=== PATIENT | male | born 1975 | race Hispanic/Latino ===

== ENCOUNTER 2019-05-26 14:47 | Emergency (ER) | payer SELFPAY ==
[2019-05-26] MEDS ORDERED: IBUPROFEN 400 MG TAB ONE (15:14)
[2019-05-26] MEDS ORDERED: IBUPROFEN 200 MG TAB PO ONE (15:14)
[2019-05-26] MEDS ORDERED: TETANUS & DIPHTHERIA TOX,ADULT 0.5 ML VIAL ONE (15:15)
--- NOTE | 2019-05-26 15:27 | EDPHYS ---
Physician Documentation [facility] Name: Claus Rosario Age: 44 yrs Sex: Male : 1975 Arrival Date: 05/26/2019 Time: 14:50 Bed 6 Private MD: ED Physician Randy Sanchez HPI: 05/26 15:24 This 44 yrs old Male presents to ER via Ambulatory with complaints of jr8 Laceration To Head. 15:24 Pt was working under the house and stood up hitting his head on a sharp object, denies jr8 LOC. Historical: - Allergies: 14:53 No Known Allergies; sv - Immunization history:: Last tetanus immunization: unknown. - Social history:: Smoking status: Patient/guardian denies using tobacco. - Ebola Screening: : No symptoms or risks identified at this time. ROS: 15:24 Constitutional: Negative for fever, chills, and weight loss, Eyes: Negative for injury, jr8 pain, redness, and discharge, ENT: Negative for injury, pain, and discharge, Neck: Negative for injury, pain, and swelling, Cardiovascular: Negative for chest pain, palpitations, and edema, Respiratory: Negative for shortness of breath, cough, wheezing, and pleuritic chest pain, Abdomen/GI: Negative for abdominal pain, nausea, vomiting, diarrhea, and constipation, Back: Negative for injury and pain, MS/Extremity: Negative for injury and deformity, Neuro: Negative for headache, weakness, numbness, tingling, and seizure. 15:24 Skin: Positive for laceration(s). Exam: 15:24 Constitutional: This is a well developed, well nourished patient who is awake, alert, jr8 and in no acute distress. Head/Face: Normocephalic, atraumatic. Eyes: Pupils equal round and reactive to light, extra-ocular motions intact. Lids and lashes normal. Conjunctiva and sclera are non-icteric and not injected. Cornea within normal limits. Periorbital areas with no swelling, redness, or edema. ENT: Nares patent. No nasal discharge, no septal abnormalities noted. Tympanic membranes are normal and external auditory canals are clear. Oropharynx with no redness, swelling, or masses, exudates, or evidence of obstruction, uvula midline. Mucous membranes moist. Neck: Trachea midline, no thyromegaly or masses palpated, and no cervical lymphadenopathy. Supple, full range of motion without nuchal rigidity, or vertebral point tenderness. No Meningismus. Chest/axilla: Normal chest wall appearance and motion. Nontender with no deformity. No lesions are appreciated. Cardiovascular: Regular rate and rhythm with a normal S1 and S2. No gallops, murmurs, or rubs. Normal PMI, no JVD. No pulse deficits. Respiratory: Lungs have equal breath sounds bilaterally, clear to auscultation and percussion. No rales, rhonchi or wheezes noted. No increased work of breathing, no retractions or nasal flaring. Abdomen/GI: Soft, non-tender, with normal bowel sounds. No distension or tympany. No guarding or rebound. No evidence of tenderness throughout. MS/ Extremity: Pulses equal, no cyanosis. Neurovascular intact. Full, normal range of motion. 15:24 Skin: injury, laceration(s), the wound is approximately 4 cm(s), with a depth of 1 cm(s), of the right side of the back of head. Vital Signs: 14:53 BP 145 / 84; Pulse 98; Resp 16; Temp 98.2; Pulse Ox 96% ; Height 5 ft. 9 in. (175.26 sv cm); 15:57 BP 136 / 78; Pulse 81; Resp 18; Temp 98.30; Pulse Ox 99% on R/A; ph Laceration: 15:22 Wound Repair of 4cm ( 1.6in ) subcutaneous laceration to scalp. Distal jr8 neuro/vascular/tendon intact. Skin closed with 4 1-0 [place] using staple gun. MDM: 15:06 Patient medically screened. [facility] 15:25 Data reviewed: vital signs, nurses notes. Counseling: I had a detailed discussion with [facility] the patient and/or guardian regarding: the historical points, exam findings, and any diagnostic results supporting the discharge/admit diagnosis. ED course: . 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 Exp: ph 12/31/2020. Lot #: [id number]. } Route: IM; Site: right deltoid; 15:48 Follow up: Response: No adverse reaction ph 15:23 Drug: Ibuprofen 600 mg Route: PO; ph 15:48 Follow up: Response: No adverse reaction ph Disposition: 16:23 Co-signature as Attending Physician, Randy Sanchez MD I agree with the assessment and kdr plan of care. Disposition: 05/26/19 15:26 Discharged to Home. Impression: Laceration without foreign body of scalp. - Condition is Stable. - Discharge Instructions: Laceration Care, Adult, Stitches, [place], or Adhesive Wound Closure. - Work release form, Medication Reconciliation Form, Thank You Letter form. - Follow up: Private Physician; When: 5 - 6 days; Reason: Re-evaluation by your physician. - Problem is new. - Symptoms have improved. - Notes: have dayne taken out in 5-7 days. Signatures: rKystal Razo, RN RN Randy Fish MD MD [facility] Andi Stringer PA PA jr8 aNzia Rodriguez RN RN ph Corrections: (The following items were deleted from the chart) 16:06 15:26 05/26/2019 15:26 Discharged to Home. Impression: Laceration without foreign body ph of scalp. Condition is Stable. Forms are Medication Reconciliation Form, Thank You Letter, Antibiotic Education, Prescription Opioid Use. Follow up: Private Physician; When: 5 - 6 days; Reason: Re-evaluation by your physician. Problem is new. Symptoms have improved. jr8
--- NOTE | 2019-05-26 15:27 | ER ---
Nurse's Notes [facility] Name: Claus Rosario Age: 44 yrs Sex: Male : 1975 Arrival Date: 05/26/2019 Time: 14:50 Bed 6 Private MD: Diagnosis: Laceration without foreign body of scalp Presentation: 05/26 14:51 Presenting complaint: Patient states: head laceration while fixing something under the house, hit his head with a maryana nail or metal pipe. Denies LOC. Transition of care: patient was not received from another setting of care. Complicating Factors: There are no complicating factors for this patient. Onset of symptoms was May 26, 2019. Risk Assessment: Do you want to hurt yourself or someone else? Patient reports no desire to harm self or others. Care prior to arrival: None. 14:51 Method Of Arrival: Ambulatory sv 14:51 Acuity: RUBIN 3 sv 15:58 Initial Sepsis Screen: Does the patient meet any 2 criteria? No. Patient's initial ph sepsis screen is negative. Does the patient have a suspected source of infection? No. Patient's initial sepsis screen is negative. Historical: - Allergies: 14:53 No Known Allergies; sv - Immunization history:: Last tetanus immunization: unknown. - Social history:: Smoking status: Patient/guardian denies using tobacco. - Ebola Screening: : No symptoms or risks identified at this time. Screenin:57 Abuse screen: Denies threats or abuse. Denies injuries from another. Nutritional ph screening: No deficits noted. Tuberculosis screening: No symptoms or risk factors identified. Fall Risk None identified. Assessment: 15:24 General: Appears in no apparent distress. comfortable, well groomed, Behavior is calm, ph cooperative, appropriate for age. Pain: Complains of pain in right side of the back of head. Neuro: Level of Consciousness is awake, alert, obeys commands, Oriented to person, place, time, situation, Reports dizziness, headache in right occipital area. Cardiovascular: Capillary refill < 3 seconds in bilateral fingers Patient's skin is warm and dry. Respiratory: Airway is patent Respiratory effort is even, unlabored. GI: Patient currently denies nausea, vomiting. Derm: Skin is healthy with good turgor, Skin is pink, warm \T\ dry. Musculoskeletal: Circulation, motion, and sensation intact. Range of motion: intact in all extremities. Injury Description: Laceration sustained to right side of the back of head is superficial, 0.5 to 2.5 cm long, not bleeding. 15:55 Reassessment: Patient appears in no apparent distress at this time. Patient and/or ph family updated on plan of care and expected duration. Pain level reassessed. Patient is alert, oriented x 3, equal unlabored respirations, skin warm/dry/pink. Pt instructed to follow up for staple removal in 5-7 days, d/c home. Vital Signs: 14:53 BP 145 / 84; Pulse 98; Resp 16; Temp 98.2; Pulse Ox 96% ; Height 5 ft. 9 in. (175.26 sv cm); 15:57 BP 136 / 78; Pulse 81; Resp 18; Temp 98.30; Pulse Ox 99% on R/A; ph ED Course: 14:50 Patient arrived in ED. mr 14:52 Triage completed. sv 14:53 Arm band placed on. sv 14:54 Nazia Rodriguez RN is Primary Nurse. ph 14:57 Andi Stringer PA is PHCP. jr8 14:57 Randy Sanchez MD is Attending Physician. jr8 15:25 Assist provider with laceration repair on right side of the back of head that was 2.5 ph cm. or less using dayne. Set up tray. Performed by Andi TAPIA Patient tolerated well. Patient did not have IV access during this emergency room visit. Wound care: to laceration located on right side of the back of head was cleaned with Hibiclens, Patient tolerated well. 15:57 Patient has correct armband on for positive identification. Bed in low position. Call ph light in reach. Side rails up X 1. Pulse ox on. NIBP on. Door closed. Noise minimized. Warm blanket given. 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 Exp: ph 12/31/2020. Lot #: [id number]. } Route: IM; Site: right deltoid; 15:48 Follow up: Response: No adverse reaction ph 15:23 Drug: Ibuprofen 600 mg Route: PO; ph 15:48 Follow up: Response: No adverse reaction ph Outcome: 15:26 Discharge ordered by MD. kate 15:58 Discharged to home ambulatory. ph 15:58 Condition: good 15:58 Discharge instructions given to patient, Instructed on discharge instructions, follow up and referral plans. wound care, Demonstrated understanding of instructions, follow-up care, wound care. 16:06 Patient left the ED. ph Signatures: Krystal Razo RN RN Kim Salazar Josh, PA PA jr8 Hall, Patricia, RN RN
[2019-05-26 16:24] VITALS: BP 145/84; TEMP 98.2; O2SAT 96
== END 2019-05-26 16:06 | disposition home or self-care (01) ==
LOC: ER 14:47
PROC: 0JQ00ZZ Repair Scalp Subcutaneous Tissue and Fascia, Open Approach (ICD-10-PCS; principal; 2019-05-26)
DX: S01.01XA Laceration without foreign body of scalp, initial encounter (principal); W22.8XXA Striking against or struck by other objects, initial encounter; Y93.89 Activity, other specified; Y92.89 Other specified places as the place of occurrence of the external cause; Z23 Encounter for immunization
CPT/HCPCS: 90471; 90714; 99284

== ENCOUNTER 2019-06-03 12:54 | Emergency (ER) | payer SELFPAY ==
--- NOTE | 2019-06-03 13:46 | ER ---
Nurse's Notes [facility] Name: Claus Rosario Age: 44 yrs Sex: Male : 1975 Arrival Date: 06/03/2019 Time: 12:55 Bed 12 Private MD: Diagnosis: Encounter for removal of sutures-dayne Presentation: 06/03 13:00 Presenting complaint: Patient states: i need to get these dayne out, today is day 8, tw2 i was out of town yesterday. Transition of care: patient was not received from another setting of care. Onset of symptoms was June 03, 2019. Risk Assessment: Do you want to hurt yourself or someone else? Patient reports no desire to harm self or others. Initial Sepsis Screen: Does the patient meet any 2 criteria? No. Patient's initial sepsis screen is negative. Does the patient have a suspected source of infection? No. Patient's initial sepsis screen is negative. Care prior to arrival: None. 13:00 Method Of Arrival: Ambulatory tw2 13:00 Acuity: RUBIN 5 tw2 Triage Assessment: 13:01 General: Appears in no apparent distress. well groomed, Behavior is calm, cooperative, tw2 appropriate for age. Pain: Denies pain. Injury Description: 4 dayne to RIGHT side of temporal area, no s\T\s infection noted. Historical: - Allergies: 13: No Known Allergies; tw2 - Home Meds: 13: None [Active]; tw2 - PMHx: 13: None; tw2 - PSHx: 13:01 None; tw2 - Immunization history:: Adult Immunizations. - Social history:: Smoking status: . - Ebola Screening: : Patient denies travel to an Ebola-affected area in the 21 days before illness onset. - Family history:: not pertinent. Screenin:05 Abuse screen: Denies threats or abuse. Nutritional screening: No deficits noted. tw2 Tuberculosis screening: No symptoms or risk factors identified. Fall Risk None identified. Assessment: 13:05 Reassessment: see triage assessment. tw2 13:43 Reassessment: Patient appears in no apparent distress at this time. No changes from tw2 previously documented assessment. Patient and/or family updated on plan of care and expected duration. Pain level reassessed. Patient is alert, oriented x 3, equal unlabored respirations, skin warm/dry/pink. Vital Signs: 13:01 BP 129 / 79; Pulse 99; Resp 17; Temp 97.4; Pulse Ox 97% on R/A; Pain 0/10; tw2 ED Course: 12:55 Patient arrived in ED. as 13:00 Bed in low position. Call light in reach. suture removal kit at bedside. tw2 13:01 Triage completed. tw2 13:01 Arm band placed on. tw2 13:05 Elicia Millard, RN is Primary Nurse. tw2 13:05 Ezra Vail MD is Attending Physician. [facility] 13:06 No provider procedures requiring assistance completed. Patient did not have IV access tw2 during this emergency room visit. Administered Medications: No medications were administered Outcome: 13:43 Discharged to home ambulatory. tw2 13:43 Condition: stable 13:43 Discharge instructions given to patient, Instructed on discharge instructions, follow up and referral plans. Demonstrated understanding of instructions, follow-up care. 13:45 Discharge ordered by . [facility] 14:03 Patient left the ED. hb Signatures: Ezra Vail MD MD cha Martinez, Amelia as Elham Segura, RN RN Elicia Millard, SYD RN tw2
--- NOTE | 2019-06-03 13:46 | EDPHYS ---
Physician Documentation [facility] Name: Claus Rosario Age: 44 yrs Sex: Male : 1975 Arrival Date: 06/03/2019 Time: 12:55 Bed 12 Private MD: ED Physician Ezra Vail HPI: 06/03 13:42 This 44 yrs old Male presents to ER via Ambulatory with complaints of Staple blanca Removal. 13:42 The patient has trinity on the face. Previous treatment: The patient was initially blanca treated 10 day(s) ago. Sutures/trinity progress: The patient has no c/o's. The wound is well-healing with no redness, swelling, discharge, or dehiscence reported. The patient has not experienced similar symptoms in the past. Historical: - Allergies: 13: No Known Allergies; tw2 - Home Meds: 13: None [Active]; tw2 - PMHx: 13: None; tw2 - PSHx: 13:01 None; tw2 - Immunization history:: Adult Immunizations. - Social history:: Smoking status: . - Ebola Screening: : Patient denies travel to an Ebola-affected area in the 21 days before illness onset. - Family history:: not pertinent. ROS: 13:42 Constitutional: Negative for fever, chills, and weight loss, Eyes: Negative for injury, blanca pain, redness, and discharge, ENT: Negative for injury, pain, and discharge, Neck: Negative for injury, pain, and swelling, Cardiovascular: Negative for chest pain, palpitations, and edema, Respiratory: Negative for shortness of breath, cough, wheezing, and pleuritic chest pain, Abdomen/GI: Negative for abdominal pain, nausea, vomiting, diarrhea, and constipation, Back: Negative for injury and pain, : Negative for injury, bleeding, discharge, and swelling, MS/Extremity: Negative for injury and deformity, Neuro: Negative for headache, weakness, numbness, tingling, and seizure, Psych: Negative for depression, anxiety, suicide ideation, homicidal ideation, and hallucinations, Allergy/Immunology: Negative for hives, rash, and allergies, Endocrine: Negative for neck swelling, polydipsia, polyuria, polyphagia, and marked weight changes, Hematologic/Lymphatic: Negative for swollen nodes, abnormal bleeding, and unusual bruising. 13:42 Skin: Positive for wound check. Exam: 13:42 Constitutional: This is a well developed, well nourished patient who is awake, alert, blanca and in no acute distress. Eyes: Pupils equal round and reactive to light, extra-ocular motions intact. Lids and lashes normal. Conjunctiva and sclera are non-icteric and not injected. Cornea within normal limits. Periorbital areas with no swelling, redness, or edema. ENT: Nares patent. No nasal discharge, no septal abnormalities noted. Tympanic membranes are normal and external auditory canals are clear. Oropharynx with no redness, swelling, or masses, exudates, or evidence of obstruction, uvula midline. Mucous membranes moist. Neck: Trachea midline, no thyromegaly or masses palpated, and no cervical lymphadenopathy. Supple, full range of motion without nuchal rigidity, or vertebral point tenderness. No Meningismus. Chest/axilla: Normal chest wall appearance and motion. Nontender with no deformity. No lesions are appreciated. Cardiovascular: Regular rate and rhythm with a normal S1 and S2. No gallops, murmurs, or rubs. Normal PMI, no JVD. No pulse deficits. Respiratory: Lungs have equal breath sounds bilaterally, clear to auscultation and percussion. No rales, rhonchi or wheezes noted. No increased work of breathing, no retractions or nasal flaring. Abdomen/GI: Soft, non-tender, with normal bowel sounds. No distension or tympany. No guarding or rebound. No evidence of tenderness throughout. Back: No spinal tenderness. No costovertebral tenderness. Full range of motion. Skin: Warm, dry with normal turgor. Normal color with no rashes, no lesions, and no evidence of cellulitis. MS/ Extremity: Pulses equal, no cyanosis. Neurovascular intact. Full, normal range of motion. Neuro: Awake and alert, GCS 15, oriented to person, place, time, and situation. Cranial nerves II-XII grossly intact. Motor strength 5/5 in all extremities. Sensory grossly intact. Cerebellar exam normal. Normal gait. Psych: Awake, alert, with orientation to person, place and time. Behavior, mood, and affect are within normal limits. 13:42 Head/face: wound check, healing well. Vital Signs: 13:01 BP 129 / 79; Pulse 99; Resp 17; Temp 97.4; Pulse Ox 97% on R/A; Pain 0/10; tw2 MDM: 13:05 Patient medically screened. [facility] 06/03 13:06 Order name: Staple Remover Setup; Complete Time: 13:06 tw2 Administered Medications: No medications were administered Disposition: 06/03/19 13:45 Discharged to Home. Impression: Encounter for removal of sutures - trinity. - Condition is Stable. - Discharge Instructions: Stitches, Trinity, or Adhesive Wound Closure, Suture Removal, Care After. - Medication Reconciliation Form, Thank You Letter, Antibiotic Education, Prescription Opioid Use form. - Follow up: Private Physician; When: 1 week; Reason: Recheck today's complaints, Continuance of care, Re-evaluation by your physician. - Problem is new. - Symptoms have improved. Signatures: Ezra Vail MD MD cha Baxter, Heather RN RN Elicia Millard RN RN tw2 Corrections: (The following items were deleted from the chart) 14:03 13:45 06/03/2019 13:45 Discharged to Home. Impression: Encounter for removal of sutures hb - trinity. Condition is Stable. Forms are Medication Reconciliation Form, Thank You Letter, Antibiotic Education, Prescription Opioid Use. Follow up: Private Physician; When: 1 week; Reason: Recheck today's complaints, Continuance of care, Re-evaluation by your physician. Problem is new. Symptoms have improved. [facility]
[2019-06-03 14:33] VITALS: BP 129/79; TEMP 97.4; O2SAT 97
== END 2019-06-03 14:03 | disposition home or self-care (01) ==
LOC: ER 12:54
DX: Z48.02 Encounter for removal of sutures (principal)
CPT/HCPCS: 99281

== ENCOUNTER 2020-02-24 12:55 | Emergency (ER) | payer SELFPAY, OTHER ==
--- NOTE | 2020-02-24 15:39 | ER ---
Nurse's Notes [facility] Name: Claus Rosario Age: 44 yrs Sex: Male : 1975 Arrival Date: 02/24/2020 Time: 12:56 Bed 28 Private MD: Diagnosis: Heat exhaustion, unspecified;Other malaise and fatigue Presentation: 02/23 13:29 Chief complaint: Patient states: wants to get tested for COVID, has been hot and achy, iw chills at night, no cough, has had to leave work a couple times and now they want him tested. Coronavirus screen: Proceed with normal triage. Patient denies a cough. Patient denies shortness of breath or difficulty breathing. Patient denies measured and/or subjective temperature greater than 100.4F prior to today's visit. Patient denies travel on a cruise ship or to a country the [facility] currently lists as an affected area. Patient denies contact with known and/or suspected case of COVID-19. Ebola Screen: Patient negative for fever greater than or equal to 101.5 degrees Fahrenheit, and additional compatible Ebola Virus Disease symptoms Patient denies exposure to infectious person. Patient denies travel to an Ebola-affected area in the 21 days before illness onset. No symptoms or risks identified at this time. Initial Sepsis Screen: Does the patient meet any 2 criteria? No. Patient's initial sepsis screen is negative. Does the patient have a suspected source of infection? No. Patient's initial sepsis screen is negative. Risk Assessment: Do you want to hurt yourself or someone else? Patient reports no desire to harm self or others. Onset of symptoms was February 18, 2020. 13:29 Method Of Arrival: Ambulatory iw 13:29 Acuity: RUBIN 4 iw Historical: - Allergies: 13:32 No Known Allergies; iw - Home Meds: 13:32 None [Active]; iw - PMHx: 13:32 None; iw - PSHx: 13:32 None; iw - Immunization history:: Adult Immunizations. - Social history:: Smoking status: Patient denies any tobacco usage or history of. Assessment: 14:29 General: Appears in no apparent distress. Behavior is calm, cooperative. Pain: Denies iw pain. Neuro: Level of Consciousness is awake, alert, obeys commands, Oriented to person, place, time, situation. Cardiovascular: Patient's skin is warm and dry. Vital Signs: 13:29 BP 107 / 76; Pulse 96; Resp 16; Temp 98.8; Pulse Ox 97% on R/A; Weight 83.91 kg; iw ED Course: 12:56 Patient arrived in ED. ag5 13:31 Triage completed. iw 13:32 Arm band placed on. iw 14:01 [facility] Hanna [facility]-C [facility]. snw 14:01 Michael Hernandez MD is Attending Physician. snw 14:29 Marsha Rogers, RN is Primary Nurse. iw 14:57 Pt swabbed for COVID-19. jp3 14:58 COVID-19 Sent. jp3 Administered Medications: No medications were administered Outcome: 15:38 Discharge ordered by . snw 16:07 Patient left the ED. iw Signatures: Suzie Hanna FNP-C [facility] Marsha Rogers, RN RN Darrin Ribera jp3 Ino Conway ag5
--- NOTE | 2020-02-24 15:39 | EDPHYS ---
Physician Documentation [facility] Name: Claus Rosario Age: 44 yrs Sex: Male : 1975 Arrival Date: 02/24/2020 Time: 12:56 Bed 28 Private MD: ED Physician Michael Hernandez HPI: 02/23 17:30 This 44 yrs old Male presents to ER via Ambulatory with complaints of R/O snw COVID. 17:30 The patient has experienced near-syncope, felt faint, felt generally weak. Onset: The snw symptoms/episode began/occurred gradually, 3 day(s) ago. Duration: The patient has had multiple episodes, that last an unknown period of time. Context: pt states he felt overheated and generally weak with increased fatigue. Associated injury: The patient did not suffer any apparent associated injury. Associated signs and symptoms: The patient has no apparent associated signs or symptoms. Current symptoms: Currently, the patient is not experiencing any symptoms. It is unknown whether or not the patient has had similar symptoms in the past. The patient has not recently seen a physician. pt states he needs clearance to return to work. Historical: - Allergies: 13:32 No Known Allergies; iw - Home Meds: 13:32 None [Active]; iw - PMHx: 13:32 None; iw - PSHx: 13:32 None; iw - Immunization history:: Adult Immunizations. - Social history:: Smoking status: Patient denies any tobacco usage or history of. ROS: 17:28 Constitutional: Negative for fever, chills, and weight loss, + extreme fatigue Eyes: snw Negative for injury, pain, redness, and discharge, ENT: Negative for injury, pain, and discharge, Neck: Negative for injury, pain, and swelling, Cardiovascular: Negative for chest pain, palpitations, and edema, Respiratory: Negative for shortness of breath, cough, wheezing, and pleuritic chest pain, Abdomen/GI: Negative for abdominal pain, nausea, vomiting, diarrhea, and constipation, Back: Negative for injury and pain, : Negative for injury, bleeding, discharge, and swelling, MS/Extremity: Negative for injury and deformity, Skin: Negative for injury, rash, and discoloration, Neuro: Negative for headache, weakness, numbness, tingling, and seizure, Psych: Negative for depression, anxiety, suicide ideation, homicidal ideation, and hallucinations. Exam: 17:28 Constitutional: This is a well developed, well nourished patient who is awake, alert, snw and in no acute distress. Head/Face: Normocephalic, atraumatic. Eyes: Pupils equal round and reactive to light, extra-ocular motions intact. Lids and lashes normal. Conjunctiva and sclera are non-icteric and not injected. Cornea within normal limits. Periorbital areas with no swelling, redness, or edema. ENT: Nares patent. No nasal discharge, no septal abnormalities noted. Tympanic membranes are normal and external auditory canals are clear. Oropharynx with no redness, swelling, or masses, exudates, or evidence of obstruction, uvula midline. Mucous membranes moist. Neck: Trachea midline, no thyromegaly or masses palpated, and no cervical lymphadenopathy. Supple, full range of motion without nuchal rigidity, or vertebral point tenderness. No Meningismus. Chest/axilla: Normal chest wall appearance and motion. Nontender with no deformity. No lesions are appreciated. Cardiovascular: Regular rate and rhythm with a normal S1 and S2. No gallops, murmurs, or rubs. Normal PMI, no JVD. No pulse deficits. Respiratory: Lungs have equal breath sounds bilaterally, clear to auscultation and percussion. No rales, rhonchi or wheezes noted. No increased work of breathing, no retractions or nasal flaring. Abdomen/GI: Soft, non-tender, with normal bowel sounds. No distension or tympany. No guarding or rebound. No evidence of tenderness throughout. Back: No spinal tenderness. No costovertebral tenderness. Full range of motion. Skin: Warm, dry with normal turgor. Normal color with no rashes, no lesions, and no evidence of cellulitis. MS/ Extremity: Pulses equal, no cyanosis. Neurovascular intact. Full, normal range of motion. Neuro: Awake and alert, GCS 15, oriented to person, place, time, and situation. Cranial nerves II-XII grossly intact. Motor strength 5/5 in all extremities. Sensory grossly intact. Cerebellar exam normal. Normal gait. Psych: Awake, alert, with orientation to person, place and time. Behavior, mood, and affect are within normal limits. Vital Signs: 13:29 BP 107 / 76; Pulse 96; Resp 16; Temp 98.8; Pulse Ox 97% on R/A; Weight 83.91 kg; iw MDM: 14:30 Patient medically screened. snw 17:29 Data reviewed: vital signs, nurses notes. Data interpreted: Pulse oximetry: on room air snw is 97 %. Interpretation: normal. Counseling: I had a detailed discussion with the patient and/or guardian regarding: the historical points, exam findings, and any diagnostic results supporting the discharge/admit diagnosis, the need for outpatient follow up, for definitive care, to return to the emergency department if symptoms worsen or persist or if there are any questions or concerns that arise at home. Special discussion: Based on the history and exam findings, there is no indication for further emergent testing or inpatient evaluation. I discussed with the patient/guardian the need to see the primary care provider for further evaluation of the symptoms. 02/23 14:32 Order name: COVID-19 snw Administered Medications: No medications were administered Disposition: 02/24/20 15:38 Discharged to Home. Impression: Heat exhaustion, unspecified, Other malaise and fatigue. - Condition is Stable. - Discharge Instructions: Fatigue, Heat Exhaustion Information, COVID-19. - Work release form, Medication Reconciliation Form, Thank You Letter, Antibiotic Education, Prescription Opioid Use form. - Follow up: Emergency Department; When: As needed; Reason: Worsening of condition. Follow up: Private Physician; When: 1 week; Reason: Recheck today's complaints, Continuance of care, Re-evaluation by your physician. - Notes: Quarantine until test results. Addendum: 02/26/2020 21:13 Co-signature as Attending Physician, Michael Hernandez MD Did not see or evaluate patient. p s1 I was available in the ED for consultation. Signature for administrative purposes. . Signatures: Dispatcher [employer] Suzie Nelson, AUSTYN-C PHOTOGRAPHIC PROCESSOR-[employer] Marsha Rogers, SYD RN Michael Coy MD MD ps1 Corrections: (The following items were deleted from the chart) 02/23 16:07 15:38 02/24/2020 15:38 Discharged to Home. Impression: Heat exhaustion, unspecified; iw Other malaise and fatigue. Condition is Stable. Forms are Medication Reconciliation Form, Thank You Letter, Antibiotic Education, Prescription Opioid Use. Follow up: Emergency Department; When: As needed; Reason: Worsening of condition. Follow up: Private Physician; When: 1 week; Reason: Recheck today's complaints, Continuance of care, Re-evaluation by your physician. snw
[2020-02-24 16:56] VITALS: BP 107/76; TEMP 98.8; O2SAT 97
== END 2020-02-24 16:07 | disposition home or self-care (01) ==
LOC: ER 12:55
DX: U07.1 COVID-19 (principal); R53.81 Other malaise; R53.83 Other fatigue; X30.XXXA Exposure to excessive natural heat, initial encounter
CPT/HCPCS: 99282; U0001

== ENCOUNTER 2023-04-08 15:11 | Emergency (ER) | payer SELFPAY ==
[2023-04-08 17:26] LABS: Absolute Lymphocytes (CBC) 1.6 K/uL (0.7-4.9); Hematocrit 40.6 % (39.6-49.0); Lymphocytes % 17.5 % (15.3-44.8); MCV 85.4 fL (80-100); MPV 7.7 fL (7.6-11.3); Platelets 330 thou/uL (152-406); RBC Red Blood Cell Count 4.75 M/uL (4.33-5.43)
[2023-04-08 17:51] LABS: Albumin 3.8 g/dL (3.4-5.0); Bilirubin Total 0.6 mg/dL (0.2-1.0); Protein, Total 8.4 g/dL (6.4-8.2)
[2023-04-08 17:52] LABS: Potassium 4.4 mEq/L (3.5-5.1)
[2023-04-08 18:31] LABS: Specific Gravity > 1.030 (1.005-1.030); Urine Bacteria <20 /HPF (<20); Urine Bilirubin NEGATIVE (Negative); Urine Blood Negative (Negative); Urine Clarity Clear (Clear); Urine Color Yellow (Yellow); Urine Glucose 4+ (Over) (Negative); Urine Mucus Slight /HPF (None Seen); Urine Protein 1+ (Negative); Urine RBC <5 /HPF (None Seen); Urine Urobilinogen Normal (Normal); Urine pH 5.5 (5.0-7.0)
--- NOTE | 2023-04-08 18:34 | EDPHYS ---
Physician Documentation [facility] Name: Claus Rosario Age: 47 yrs Sex: Male : 1975 Arrival Date: 04/08/2023 Time: 15:11 Bed 7 Private MD: ED Physician Tyrone Willams HPI: 04/08 16:00 This 47 yrs old Male presents to ER via Ambulatory with complaints of High cp Blood Sugar. 16:00 The patient or guardian reports hyperglycemia. cp 16:00 Patient is a 47-year-old male with past medical history significant for diabetes cp mellitus. Patient reports she was diagnosed about 2 to 3 years ago and placed on metformin. Patient reports he took prescription and when she ran out never followed up and has not seen a physician since. Patient reports at a routine diabetes screening yesterday his blood glucose level was measured to be around 600. Patient denies chest pain, belly pain and presents to the emergency room for evaluation for elevated blood glucose. Patient reports he has not been at all today and has only drink water. Historical: - Allergies: 15:42 No Known Allergies; nj1 - PMHx: 15:42 Diabetes mellitus; nj1 - PSHx: 15:42 None; nj1 - Immunization history:: Client reports receiving the 2nd dose of the Covid vaccine. - Social history:: Smoking status: Patient denies any tobacco usage or history of. ROS: 16:05 Constitutional: Negative for body aches, chills, fever, poor PO intake. cp 16:05 Eyes: Negative for injury, pain, redness, and discharge. cp 16:05 ENT: Negative for drainage from ear(s), ear pain, sore throat, difficulty swallowing, difficulty handling secretions. 16:05 Cardiovascular: Negative for chest pain. 16:05 Respiratory: Negative for cough, shortness of breath, wheezing. 16:05 Abdomen/GI: Negative for abdominal pain, vomiting, diarrhea, constipation. 16:05 : Positive for urinary frequency, Negative for hematuria, flank pain. 16:05 Skin: Negative for rash. 16:05 Neuro: Negative for altered mental status, dizziness, headache, numbness, weakness. 16:05 All other systems are negative. Exam: 16:10 Constitutional: The patient appears in no acute distress, alert, awake, cp non-diaphoretic, non-toxic, well developed, well nourished. 16:10 Head/Face: Normocephalic, atraumatic. cp 16:10 Eyes: Periorbital structures: appear normal, Pupils: equal, round, and reactive to light and accomodation, Extraocular movements: intact throughout, Conjunctiva: normal, no exudate, no injection, Sclera: no appreciated abnormality, Lids and lashes: appear normal, bilaterally. 16:10 ENT: External ear(s): are unremarkable, Nose: is normal, Mouth: Lips: moist, Oral mucosa: pink and intact, moist, Posterior pharynx: is normal, airway is patent, no erythema, no exudate. 16:10 Chest/axilla: Inspection: normal. 16:10 Cardiovascular: Rate: tachycardic, Rhythm: regular, Edema: is not appreciated, JVD: is not appreciated. 16:10 Respiratory: the patient does not display signs of respiratory distress, Respirations: normal, no use of accessory muscles, no retractions, labored breathing, is not present, Breath sounds: are clear throughout, no decreased breath sounds, no stridor, no wheezing. 16:10 Abdomen/GI: Inspection: abdomen appears normal, Bowel sounds: active, all quadrants, Palpation: abdomen is soft and non-tender, in all quadrants. 16:10 Neuro: Orientation: to person, place \T\ time. Mentation: is normal, Motor: moves all fours, strength is normal, Sensation: is normal. Vital Signs: 15:34 BP 141 / 84; Pulse 106; Resp 18; Temp 98.7(O); Pulse Ox 97% on R/A; Weight 89.81 kg; nj1 Height 5 ft. 9 in. ; Pain 0/10; 15:34 Body Mass Index 29.24 (89.81 kg, 175.26 cm) nj 15:34 Pain Scale: Adult nj1 MDM: 15:48 Patient medically screened. cp 16:00 Differential diagnosis: diabetes insipidus, DKA, hyperglycemia. cp 18:33 Data reviewed: vital signs, nurses notes, lab test result(s). cp 18:34 Counseling: I had a detailed discussion with the patient and/or guardian regarding the cp historical points, exam findings, and any diagnostic results supporting the discharge/admit diagnosis, lab results, the need for outpatient follow up, for definitive care, a family practitioner, to return to the emergency department if symptoms worsen or persist or if there are any questions or concerns that arise at home. 04/08 15:49 Order name: CBC with Diff; Complete Time: 17:40 cp 04/08 17:40 Interpretation: Reviewed. 04/08 15:49 Order name: CMP; Complete Time: 18:01 cp 04/08 18:02 Interpretation: Normal except: NA 134; GLUC 205; TP 8.4; GLOB 4.6; A/G 0.8. 04/08 15:49 Order name: Lipase; Complete Time: 18:01 04/08 15:49 Order name: Urinalysis w/ reflexes; Complete Time: 18:33 04/08 15:59 Order name: Glucose, Ancillary Testing; Complete Time: 17:00 EDMS 04/08 17:00 Interpretation: Reviewed. 04/08 15:32 Order name: Accucheck Blood Glucose; Complete Time: 17:06 04/08 15:49 Order name: IV Saline Lock; Complete Time: 17:21 04/08 15:49 Order name: Labs collected and sent; Complete Time: 17:21 cp Administered Medications: 17:21 Drug: NS 0.9% IV 1000 ml Route: IV; Rate: 1 bolus; Site: right antecubital; ko1 19:08 Follow up: Response: No adverse reaction; Marked relief of symptoms; IV Status: jw7 Completed infusion; IV Intake: 1000ml Disposition Summary: 04/08/23 18:34 Discharge Ordered Location: Home cp Problem: chronic cp Symptoms: have improved cp Condition: Stable cp Diagnosis - Diabetes mellitus due to underlying condition with hyperglycemia cp Followup: cp - With: Private Physician - When: 2 - 3 days - Reason: Recheck today's complaints Discharge Instructions: - Discharge Summary Sheet cp - Hyperglycemia cp - Daily Diabetes Mellitus Record cp - Blood Glucose Monitoring, Adult cp - Diabetes Mellitus and Nutrition, Adult cp Forms: - Medication Reconciliation Form cp - Thank You Letter cp - Antibiotic Education cp - Prescription Opioid Use cp - Patient Portal Instructions cp - Leadership Thank You Letter cp Prescriptions: - Metformin 1,000 mg Oral Tablet - take 1 tablet by ORAL route every 12 hours with morning and evening meals; 30 cp tablet; Refills: 0, Product Selection Permitted Signatures: Dispatcher [employer] Ezra Serrano PA PA cp Oliver, Kathy, RN RN ko1 Melony Hough RN RN nj1 [address] RN jw7
--- NOTE | 2023-04-08 18:34 | ER ---
Nurse's Notes [facility] Name: Claus Rosario Age: 47 yrs Sex: Male : 1975 Arrival Date: 04/08/2023 Time: 15:11 Bed 7 Private MD: Diagnosis: Diabetes mellitus due to underlying condition with hyperglycemia Presentation: 04/08 15:34 Chief complaint: Patient states: Blood sugar 600's yesterday. Diagnosed with diabetes nj1 back in 2019, prescribed metformin but stopped taking it after a few months. Has not seen a doctor since. Denies any symptoms at this time. Coronavirus screen: Vaccine status: Patient reports receiving the 2nd dose of the covid vaccine. Ebola Screen: Patient denies travel to an Ebola-affected area in the 21 days before illness onset. Initial Sepsis Screen: Does the patient meet any 2 criteria? HR > 90 bpm. No. Patient's initial sepsis screen is negative. Does the patient have a suspected source of infection? No. Patient's initial sepsis screen is negative. Risk Assessment: Do you want to hurt yourself or someone else? Patient reports no desire to harm self or others. Onset of symptoms was April 07, 2023. 15:34 Method Of Arrival: Ambulatory [facility] 15:34 Acuity: RUBIN 3 nj1 Triage Assessment: 19:10 General: Appears in no apparent distress. comfortable, Behavior is calm, cooperative. jw7 Pain: Denies pain. Historical: - Allergies: 15:42 No Known Allergies; nj1 - PMHx: 15:42 Diabetes mellitus; nj1 - PSHx: 15:42 None; nj1 - Immunization history:: Client reports receiving the 2nd dose of the Covid vaccine. - Social history:: Smoking status: Patient denies any tobacco usage or history of. Screenin:08 [facility] ED Fall Risk Assessment (Adult) History of falling in the last 3 months, jw7 including since admission No falls in past 3 months (0 pts) Score/Fall Risk Level 0 - 2 = Low Risk. Abuse screen: Denies threats or abuse. Denies injuries from another. Nutritional screening: No deficits noted. Tuberculosis screening: No symptoms or risk factors identified. Vital Signs: 15:34 BP 141 / 84; Pulse 106; Resp 18; Temp 98.7(O); Pulse Ox 97% on R/A; Weight 89.81 kg; nj1 Height 5 ft. 9 in. ; Pain 0/10; 15:34 Body Mass Index 29.24 (89.81 kg, 175.26 cm) nj1 15:34 Pain Scale: Adult [facility] ED Course: 15:12 Patient arrived in ED. mr 15:14 Ezra Loera PA is PHCP. cp 15:14 Tyrone Willams MD is Attending Physician. cp 15:42 Triage completed. nj1 15:42 Arm band placed on left wrist. nj1 17:05 Oralia Cary, RN is Primary Nurse. ko1 17:21 CBC with Diff Sent. ko1 17:21 CMP Sent. ko1 17:21 Lipase Sent. ko1 19:08 Patient has correct armband on for positive identification. Bed in low position. Call jw7 light in reach. Provided Education on: discharge instructions. 19:08 No provider procedures requiring assistance completed. Patient did not have IV access jw7 during this emergency room visit. Administered Medications: 17:21 Drug: NS 0.9% IV 1000 ml Route: IV; Rate: 1 bolus; Site: right antecubital; ko1 19:08 Follow up: Response: No adverse reaction; Marked relief of symptoms; IV Status: jw7 Completed infusion; IV Intake: 1000ml Medication: 19:10 VIS not applicable for this client. jw7 Intake: 19:08 IV: 1000ml; Total: 1000ml. jw7 Outcome: 18:34 Discharge ordered by . cp 19:08 Discharged to home ambulatory, with family. jw7 19:08 Condition: stable 19:08 Discharge instructions given to patient, family, Instructed on discharge instructions, follow up and referral plans. medication usage, Demonstrated understanding of instructions, follow-up care, medications, Prescriptions given X 1. 19:10 Patient left the ED. jw7 Signatures: Salazar Kim freitas Ezra Loera PA PA Ave [address] RN RN jw7 Oralia Cary, RN SYD ko1 Melony Hough RN RN nj1
[2023-04-08 19:16] VITALS: BP 141/84; TEMP 98.7; O2SAT 97
== END 2023-04-08 19:10 | disposition home or self-care (01) ==
LOC: ER 15:11
DX: E11.65 Type 2 diabetes mellitus with hyperglycemia (principal)
CPT/HCPCS: 36415; 80053; 81001; 82947; 83690; 85025; 96360; 96361; 99284

== ENCOUNTER 2024-06-03 15:05 | Emergency (ER) | payer OTHER, SELFPAY ==
[2024-06-03] MEDS ORDERED: ASPIRIN 81 MG CHEWABLE TABLET ONE (15:33)
[2024-06-03] MEDS ORDERED: NITROGLYCERIN 0.4 MG/TAB SL ONE (15:34)
[2024-06-03 15:36] LABS: Absolute Basophils 0.1 K/uL (0-0.5); Absolute Eosinophils 0.2 K/uL (0-0.5); Absolute Lymphocytes (CBC) 1.4 K/uL (0.7-4.9); Absolute Monocytes 0.5 K/uL (0.1-1.3); Absolute Neutrophil 6.4 K/uL (1.8-8.0); Basophils % 1.2 % (0-1.3); Eosinophils % 2.7 % (0-4.4); Hematocrit 38.6 % (39.6-49.0); Hemoglobin 13.2 g/dL (13.6-17.9); MCH 29.9 pg (27.0-35.0); MCHC 34.2 g/dL (32.0-36.0); MCV 87.6 fL (80-100); Monocytes % 5.7 % (3.3-12.3); Neutrophils % 74.4 % (41.7-73.7); Platelets 405 thou/uL (152-406); Red Cell Distribution Width 12.7 % (12.1-15.2)
[2024-06-03 15:55] LABS: ALT/SGPT 18 U/L (16-61); AST/SGOT < 10 U/L (15-37); Albumin 3.5 g/dL (3.4-5.0); Albumin/Globulin Ratio 0.8 (1.1-1.8); Alkaline Phosphatase 74 U/L (45-117); Anion Gap 9.4 mEq/L (5.0-15.0); BUN Blood Urea Nitrogen 23 mg/dL (7-18); Bicarbonate 32 mEq/L (21-32); Bilirubin Direct < 0.2 mg/dL (0-0.2); Bilirubin Total 0.2 mg/dL (0.2-1.0); Globulin 4.3 g/dL (2.3-3.5); Glomerular Filtration Rate 56 ml/min (=/>90); Glucose Level 261 mg/dL (74-106); NT PRO-BNP 18 pg/mL (<125); Potassium 3.4 mEq/L (3.5-5.1); Protein, Total 7.8 g/dL (6.4-8.2); Sodium Level 131 mEq/L (136-145); Troponin High Sensitivity 19.2 pg/mL (<58.9)
--- NOTE | 2024-06-03 17:35 | RAD REPORT ---
EXAMINATION: ONE VIEW CHEST XR CLINICAL INDICATION: Male, 49 years old.,CHEST PAIN TECHNIQUE: Frontal chest projection is submitted. Examination is limited by patient positioning and t echnique. COMPARISON: 12/14/2015 FINDINGS: The lungs are well inflated and clear. No pneumothorax or sizable effusion. The heart is normal in s ize. IMPRESSION: No acute intrathoracic abnormalities.
--- NOTE | 2024-06-03 17:54 | EDPHYS ---
Physician Documentation [facility] Name: Claus Rosario Age: 49 yrs Sex: Male : 1975 Arrival Date: 06/03/2024 Time: 15:05 Bed 4 Private MD: Tracy Hartmann ED Physician Shyam Waters HPI: 06/03 16:40 This 49 yrs old Male presents to ER via Ambulatory with complaints of Chest rt Pain, Nausea/Vomiting, history of diabetes, Doesn't Feel Right. 16:40 Patient presents to the ED with left-sided chest pain. Patient states that this is been rt intermittent for a few days. States it is worse with exertion. Patient states that he had pain earlier this morning, since resolved. After lunch after eating, he had the pain with nausea, vomiting. Denies any abdominal pain. States that the pain is improved but not completely resolved currently. Symptoms are moderate in severity, no other aggravating or alleviating factors.. Historical: - Allergies: 16:09 No Known Allergies; iw - Home Meds: 16:09 metformin 1,000 mg oral tablet 2 times per day [Active]; iw - PMHx: 16:09 diabetes mellitus; iw - PSHx: 16:09 None; iw - Immunization history:: Adult Immunizations up to date. - Infectious Disease History:: Denies. - Family history:: not pertinent. - Social history:: Smoking status: unknown. ROS: 16:40 Constitutional: Negative for fever, chills, and weight loss, Respiratory: Negative for rt shortness of breath, cough, wheezing, and pleuritic chest pain, MS/Extremity: Negative for injury and deformity, Skin: Negative for injury, rash, and discoloration, Neuro: Negative for headache, weakness, numbness, tingling, and seizure, 16:40 Cardiovascular: Positive for chest pain, Negative for edema, 16:40 Abdomen/GI: Positive for nausea and vomiting, Negative for abdominal pain, Exam: 16:40 Constitutional: This is a well developed, well nourished patient who is awake, alert, rt and in no acute distress. Head/Face: Normocephalic, atraumatic. Chest/axilla: Normal chest wall appearance and motion. Nontender with no deformity. No lesions are appreciated. Cardiovascular: Regular rate and rhythm with a normal S1 and S2. No gallops, murmurs, or rubs. Normal PMI, no JVD. No pulse deficits. Respiratory: Lungs have equal breath sounds bilaterally, clear to auscultation and percussion. No rales, rhonchi or wheezes noted. No increased work of breathing, no retractions or nasal flaring. Abdomen/GI: Soft, non-tender, with normal bowel sounds. No distension or tympany. No guarding or rebound. No evidence of tenderness throughout. Skin: Warm, dry with normal turgor. Normal color with no rashes, no lesions, and no evidence of cellulitis. MS/ Extremity: Pulses equal, no cyanosis. Neurovascular intact. Full, normal range of motion. Neuro: Awake and alert, GCS 15, oriented to person, place, time, and situation. Cranial nerves II-XII grossly intact. Motor strength 5/5 in all extremities. Sensory grossly intact. Cerebellar exam normal. Normal gait. 16:40 ECG was reviewed by the Attending Physician. 17:31 ECG was reviewed by the Attending Physician. rt Vital Signs: 16:10 BP 122 / 98; Pulse 100; Resp 16; Pulse Ox 97% on R/A; iw 16:56 BP 110 / 77; Pulse 80; Resp 18; Pulse Ox 98% ; bp 17:27 BP 111 / 84; Pulse 77; Resp 16; Pulse Ox 99% on R/A; hb 18:12 BP 115 / 73; Pulse 90; Resp 16; Pulse Ox 97% ; bp MDM: 15:12 Medical Screening Exam initiated rt 17:54 Differential diagnosis: ACS, nonspecific chest pain, dyspepsia, pneumonia. HEART Score: rt History: Moderately Suspicious (1), ECG: Normal (0), Age: > 45 and < 65 years (1), Risk Factors: 1 or 2 risk factors (1), Troponin: < or = 1 x Normal Limit (0), Total Score = 3. The patient was given aspirin in the Emergency Department. Data reviewed: vital signs, nurses notes, lab test result(s), EKG, radiologic studies. Consideration of Admission/Observation Escalation of care including admission/observation considered. Discussed admission versus outpatient management with patient, request to go home, will follow-up with cardiology, repeat troponin is unremarkable. Stable for outpatient care, return precautions discussed.. I considered the following discharge prescriptions or medication management in the emergency department Medications were administered in the Emergency Department. See MAR. Independent interpretation of the following test(s) in the Emergency Department X-Ray: My interpretation is No consolidation seen on my interpretation of x-ray images. Care significantly affected by the following chronic conditions: Diabetes. Counseling: I had a detailed discussion with the patient and/or guardian regarding the historical points, exam findings, and any diagnostic results supporting the discharge/admit diagnosis, lab results, radiology results, the need for outpatient follow up, to return to the emergency department if symptoms worsen or persist or if there are any questions or concerns that arise at home. Response to treatment: the patient's symptoms have markedly improved after treatment. 06/03 15:18 Order name: Basic Metabolic Panel; Complete Time: 16:18 rt 06/03 15:18 Order name: CBC with Diff; Complete Time: 16:18 rt 06/03 15:18 Order name: LFT's; Complete Time: 16:18 rt 06/03 15:18 Order name: NT PRO-BNP; Complete Time: 16:18 rt 06/03 15:18 Order name: Troponin HS; Complete Time: 16:18 rt 06/03 17:14 Order name: Troponin High Sensitivity; Complete Time: 17:51 rt 06/03 15:18 Order name: XRAY Chest (1 view); Complete Time: 17:36 rt 06/03 15:18 Order name: Cardiac monitoring; Complete Time: 15:25 rt 06/03 15:18 Order name: EKG - Nurse/Tech; Complete Time: 15:25 rt 06/03 15:18 Order name: IV Saline Lock; Complete Time: 15:40 rt 06/03 15:18 Order name: Labs collected and sent; Complete Time: 15:40 rt 06/03 15:18 Order name: O2 Per Protocol; Complete Time: 15:25 rt 06/03 15:18 Order name: O2 Sat Monitoring; Complete Time: 15:25 rt 06/03 17:14 Order name: EKG - Nurse/Tech; Complete Time: 17:27 rt EC:40 Rate is 91 beats/min. Rhythm is regular, Normal Sinus Rhythm with No ectopy. QRS [place] rt is Normal. HI interval is normal. QRS interval is normal. QT interval is normal. No Q waves. T waves are Normal. No ST changes noted. Interpreted by me. 17:31 Rate is 75 beats/min. Rhythm is regular, Normal Sinus Rhythm with No ectopy. QRS [place] rt is Normal. HI interval is normal. QRS interval is normal. QT interval is normal. No Q waves. T waves are Normal. No ST changes noted. Interpreted by me. Administered Medications: 15:40 Drug: Aspirin PO Chewable Tablet 324 mg PO once; 81 mg tablets x 4 Route: PO; bp 17:04 Follow up: Response: No adverse reaction bp 17:04 Not Given (Hemodynamic Parameters): nitroglycerin0.4 mg Sublingual once; every five bp minute if needed x3 Disposition Summary: 06/03/24 17:53 Discharge Ordered Notes: Location: Home rt Problem: new rt Symptoms: have improved rt Condition: Stable rt Diagnosis - Chest pain, unspecified rt Followup: rt - With: Jose Carter MD - When: 2 - 3 days - Reason: Discharge Instructions: - Discharge Summary Sheet rt - Nonspecific Chest Pain, Adult rt Forms: - Medication Reconciliation Form rt - Antibiotic Education rt - Prescription Opioid Use rt - Patient Portal Instructions rt - Leadership Thank You Letter rt Signatures: Dispatcher [employer] Marsha Smyth, SYD RN Rashid Carlos RN RN Shyam Fountain MD MD rt
--- NOTE | 2024-06-03 17:54 | ER ---
Nurse's Notes [facility] Name: Claus Rosario Age: 49 yrs Sex: Male : 1975 Arrival Date: 06/03/2024 Time: 15:05 Bed 4 Private MD: Tracy Hartmann Diagnosis: Chest pain, unspecified Presentation: 06/03 15:16 Acuity: RUBIN 3 iw 15:16 Chief complaint: Patient states: vomiting after eating and left side chest pain. iw Coronavirus screen: At this time, the client does not indicate any symptoms associated with coronavirus-19. Ebola Screen: No symptoms or risks identified at this time. Initial Sepsis Screen: Does the patient meet any 2 criteria? No. Patient's initial sepsis screen is negative. Does the patient have a suspected source of infection? No. Patient's initial sepsis screen is negative. Risk Assessment: Do you want to hurt yourself or someone else? Patient reports no desire to harm self or others. Onset of symptoms was May 29, 2024. 15:16 Method Of Arrival: Ambulatory iw Triage Assessment: 15:30 General: Appears in no apparent distress. Behavior is calm, cooperative, appropriate bp for age. Pain: Complains of pain in chest. EENT: No deficits noted. Neuro: No deficits noted. Cardiovascular: Reports chest pain, Rhythm is sinus rhythm. Respiratory: No deficits noted. GI: Abdomen is non-distended, Reports nausea. : No signs and/or symptoms were reported regarding the genitourinary system. Derm: No deficits noted. Musculoskeletal: No deficits noted. Historical: - Allergies: 16:09 No Known Allergies; iw - Home Meds: 16:09 metformin 1,000 mg oral tablet 2 times per day [Active]; iw - PMHx: 16:09 diabetes mellitus; iw - PSHx: 16:09 None; iw - Immunization history:: Adult Immunizations up to date. - Infectious Disease History:: Denies. - Family history:: not pertinent. - Social history:: Smoking status: unknown. Screenin:56 [facility] ED Fall Risk Assessment (Adult) History of falling in the last 3 months, bp including since admission No falls in past 3 months (0 pts) Confusion or Disorientation No (0 pts) Intoxicated or Sedated No (0 pts) Impaired Gait No (0 pts) Mobility Assist Device Used No (0 pt) Altered Elimination No (0 pt) Score/Fall Risk Level 0 - 2 = Low Risk. Abuse screen: Denies threats or abuse. Denies injuries from another. Nutritional screening: No deficits noted. Tuberculosis screening: No symptoms or risk factors identified. Assessment: 15:30 General: Appears in no apparent distress. Behavior is calm, cooperative, appropriate bp for age. 17:27 Reassessment: Patient appears in no apparent distress at this time. Patient and/or hb family updated on plan of care and expected duration. Pain level reassessed. Patient is alert, oriented x 3, equal unlabored respirations, skin warm/dry/pink. Vital Signs: 16:10 BP 122 / 98; Pulse 100; Resp 16; Pulse Ox 97% on R/A; iw 16:56 BP 110 / 77; Pulse 80; Resp 18; Pulse Ox 98% ; bp 17:27 BP 111 / 84; Pulse 77; Resp 16; Pulse Ox 99% on R/A; hb 18:12 BP 115 / 73; Pulse 90; Resp 16; Pulse Ox 97% ; bp ED Course: 15:06 Patient arrived in ED. am2 15:07 Tracy Hartmann is Private Physician. am2 15:11 Shyam Waters MD is Attending Physician. rt 15:12 Rashid Caldwell, SYD is Primary Nurse. bp 15:16 Triage completed. iw 15:30 Arm band placed on. bp 15:31 Initial lab(s) drawn, by me, sent to lab. EKG done, by ED staff. Inserted saline lock: tm3 20 gauge in left antecubital area, using aseptic technique. 16:13 XRAY Chest (1 view) In Process Unspecified. EDMS 16:56 Patient has correct armband on for positive identification. Provided Education on: N/A. bp Client placed on continuous cardiac and pulse oximetry monitoring. NIBP monitoring applied. monitoring specialist on. Pulse ox on. NIBP on. 17:27 Troponin High Sensitivity Sent. hb 17:52 Jose Carter MD is Referral Physician. rt 18:12 No provider procedures requiring assistance completed. IV discontinued, intact, bp bleeding controlled, No redness/swelling at site. Pressure dressing applied. Patient maintains SpO2 saturation greater than 95% on room air. Administered Medications: 15:40 Drug: Aspirin PO Chewable Tablet 324 mg PO once; 81 mg tablets x 4 Route: PO; bp 17:04 Follow up: Response: No adverse reaction bp 17:04 Not Given (Hemodynamic Parameters): nitroglycerin0.4 mg Sublingual once; every five bp minute if needed x3 Medication: 16:56 VIS not applicable for this client. bp Outcome: 17:53 Discharge ordered by . rt 18:12 Discharged to home ambulatory, bp 18:12 Condition: stable 18:12 Discharge instructions given to patient, Instructed on discharge instructions, follow up and referral plans. Demonstrated understanding of instructions, follow-up care, 18:12 Patient left the ED. bp Signatures: Dispatcher [employer] EDMS Tha Nino tm3 Marsha Rogers RN RN iw Elham Segura RN RN Radha Hess am2 Rashid Caldwell, SYD RN bp Shyam Waters MD MD rt Corrections: (The following items were deleted from the chart) 17:27 17:27 Reassessment: Patient appears in no apparent distress at this time. hb hb
[2024-06-03 20:56] VITALS: BP 115/73; O2SAT 97
--- NOTE | 2024-06-05 11:56 | EKG ---
Test Date: 2024-06-03 Test Time: 15:18:54 [facility] Teacher: TM MEASUREMENT RESULTS: Intervals: Rate: 84 IL: 130 QRSD: 86 QT: 370 QTc: 437 [place]: P: 68 [place]: 130 QRS: 89 T: 19 INTERPRETIVE STATEMENTS: Normal sinus rhythm with sinus arrhythmia Normal ECG Compared to ECG 12/14/2015 17:02:19 No significant changes Electronically Signed On 06-05-24 11:52:50 CDT by Carlos Alberto Guerrero
--- NOTE | 2024-06-05 11:56 | EKG ---
Test Date: 2024-06-03 Test Time: 17:20:11 [employer] Host: TM MEASUREMENT RESULTS: Intervals: Rate: 75 PA: 130 QRSD: 84 QT: 384 QTc: 428 [place]: P: 48 PA: 130 QRS: 87 T: 8 INTERPRETIVE STATEMENTS: Normal sinus rhythm Normal ECG Compared to ECG 12/14/2015 17:02:19 No significant changes Electronically Signed On 06-05-24 11:52:30 CDT by Carlos Alberto Guerrero
--- NOTE | 2024-06-05 11:56 | EKG ---
Test Date: 2024-06-03 Test Time: 15:19:26 [employer]: TM MEASUREMENT RESULTS: Intervals: Rate: 91 [place]: 132 QRSD: 76 QT: 360 QTc: 442 [place]: P: 59 [place]: 132 QRS: 90 T: 5 INTERPRETIVE STATEMENTS: Normal sinus rhythm Normal ECG Compared to ECG 06/03/2024 15:18:54 Sinus arrhythmia no longer present Electronically Signed On 06-05-24 11:52:48 CDT by Carlos Alberto Guerrero
== END 2024-06-03 18:12 | disposition home or self-care (01) ==
LOC: ER 15:05
DX: R07.9 Chest pain, unspecified (principal); R11.2 Nausea with vomiting, unspecified; E11.9 Type 2 diabetes mellitus without complications
CPT/HCPCS: 36415; 71045; 80048; 80076; 83880; 84484; 85025; 93005; 99284